=== PATIENT | male | born 1955 | race Caucasian/White ===

== ENCOUNTER 2017-12-19 06:27 | Day surgery (SDC) | payer OTHER ==
[~2017-12-19] VITALS: Ht 172.7 cm; Wt 83.9 kg
[2017-12-19 07:02] VITALS: BP 143/87
[2017-12-19 10:38] VITALS: BP 139/88
== END 2017-12-19 09:35 | disposition home or self-care (01) ==
LOC: GI 06:27 → OR 10:30 → GI 10:30
PROVIDERS: Internal Medicine
PROC: 0DJD8ZZ Inspection of Lower Intestinal Tract, Via Natural or Artificial Opening Endoscopic (ICD-10-PCS; principal; 2017-12-19 10:30)
DX: K57.30 Diverticulosis of large intestine without perforation or abscess without bleeding (principal); E78.5 Hyperlipidemia, unspecified; Z86.010 Personal history of colon polyps; Z68.28 Body mass index [BMI] 28.0-28.9, adult
CPT/HCPCS: 45378; G0500; J1610; J2250; J2310; J3010; J3490